=== PATIENT | male | born 1945 | race Caucasian/White ===

== ENCOUNTER 2017-11-01 14:44 | Day surgery (SDC) | payer OTHER ==
[~2017-11-01] VITALS: Ht 172.7 cm; Wt 108.3 kg
[~2017-11-01 14:44] MED LIST: ASPI325 PO; Amlodipine Besyl5 MG PO; OMEP20ER PO; SIMV80 PO; Zestril40 MG PO
[2017-11-01] MEDS ORDERED: HYDCHL12.5 PO (15:06)
== END 2017-11-01 17:07 | disposition home or self-care (01) ==
LOC: ORSCSDS 14:44
PROVIDERS: Orthopaedic Surgery
PROC: 01N54ZZ Release Median Nerve, Percutaneous Endoscopic Approach (ICD-10-PCS; principal; 2017-11-01 15:50)
DX: G56.01 Carpal tunnel syndrome, right upper limb (principal); I10 Essential (primary) hypertension; K21.9 Gastro-esophageal reflux disease without esophagitis; E66.9 Obesity, unspecified; Z68.36 Body mass index [BMI] 36.0-36.9, adult; Z79.899 Other long term (current) drug therapy
CPT/HCPCS: J0690; J2250; J7120